=== PATIENT | female | born 1950 | race Caucasian/White ===

== ENCOUNTER 2017-10-06 12:29 | Inpatient (IN) | payer MEDICARE, OTHER ==
[2017-10-06] MEDS: SOD CHLORIDE 0.9% 1,000 ML IV (13:05)
[2017-10-06 13:36] LABS: WHITE BLOOD COUNT 5.6 10^3/ul (4.8-10.8)
[2017-10-06 13:36] LABS: ADD MAN DIFF? NO; BASOPHIL # 0.1 10^3/ul (0.0-0.1); BASOPHILS % 0.9 % (0.0-2.0); EOSINOPHILS # 0.1 10^3/ul (0.0-0.5); EOSINOPHILS % 1.8 % (0.0-7.0); HEMATOCRIT 37.2 % (37.0-47.0); HEMOGLOBIN 12.9 g/dl (12.0-16.0); LYMPHOCYTES # 1.7 10^3/ul (0.8-2.9); LYMPHOCYTES % 31.2 % (15.0-51.0); MEAN CORPUSCULAR HEMOGLOBIN 33.3 pg (29.0-33.0); MEAN CORPUSCULAR HGB CONC 34.7 g/dl (32.0-37.0); MEAN CORPUSCULAR VOLUME 96.1 fl (82.0-101.0); MEAN PLATELET VOLUME 9.5 fl (7.4-10.4); MONOCYTE # 0.3 10^3/ul (0.3-0.9); MONOCYTES % 5.9 % (0.0-11.0); NEUTROPHIL # 3.4 10^3/ul (1.6-7.5); PLATELET COUNT 204 10^3/UL (140-415); RED BLOOD COUNT 3.87 10^6/ul (4.20-5.40); RED CELL DISTRIBUTION WIDTH 12.6 % (11.5-14.5)
[2017-10-06 13:56] LABS: ALANINE AMINOTRANSFERASE 36 IU/L (13-69); ALBUMIN/GLOBULIN RATIO 1.48; ALKALINE PHOSPHATASE 107 IU/L (42-121); ANION GAP 13 (8-16); ASPARTATE AMINO TRANSFERASE 29 IU/L (15-46); BILIRUBIN,INDIRECT 0.3 mg/dl (0-1.1); BILIRUBIN,TOTAL 0.3 mg/dl (0.2-1.3); BLOOD UREA NITROGEN 12 mg/dl (7-20); CALCIUM 9.4 mg/dl (8.4-10.2); CARBON DIOXIDE 28 mmol/L (21-31); CHLORIDE 109 mmol/L (97-110); CREATININE 0.78 mg/dl (0.44-1.00); GLUCOSE 104 mg/dl (70-220); INR 0.99; POTASSIUM 3.8 mmol/L (3.5-5.1); PROTIME 13.2 Sec (11.9-14.9); SODIUM 146 mmol/L (135-144); TOTAL PROTEIN 6.7 g/dl (6.1-8.1)
[2017-10-06 13:57] LABS: PARTIAL THROMBOPLASTIN TIME 38.2 Sec (25.0-35.0)
[2017-10-06 14:04] LABS: OPIATES Negative (NEGATIVE)
[2017-10-06 14:05] LABS: AMPHETAMINE/METHAMPHETAMINE Negative (NEGATIVE); BARBITURATES Negative (NEGATIVE); BENZODIAZEPINES Negative (NEGATIVE); CANNABINOIDS Negative (NEGATIVE); COCAINE Negative (NEGATIVE)
[2017-10-06 14:12] LABS: TROPONIN-I < 0.012 ng/ml (0.00-0.12)
[2017-10-06] MEDS: MECLIZINE 12.5 MG TAB PO (14:20)
[2017-10-06] MEDS: HYDROCODONE/APAP (10/325) TAB PO (16:30)
[2017-10-06] MEDS ORDERED: ACETAMINOPHEN 325 MG TAB PO (17:00)
[2017-10-06] MEDS: ONDANSETRON 4 MG INJ IV (17:20)
[2017-10-06] MEDS: PANTOPRAZOLE (EC) 40 MG TAB PO (18:29)
[2017-10-06] MEDS: ZOLPIDEM 5 MG TAB PO (23:29)
[2017-10-06] MEDS: PROPAFENONE 150 MG TAB PO (23:29)
[2017-10-06] MEDS: ATORVASTATIN 40 MG TAB PO (23:29)
[2017-10-06] MEDS: traZODone 50 MG TAB PO (23:30)
[2017-10-07] MEDS: LEVOTHYROXINE 25 MCG TAB PO (06:10)
[2017-10-07] MEDS: PANTOPRAZOLE (EC) 40 MG TAB PO ×2 (06:10→17:54)
[2017-10-07 07:57] LABS: ADD MAN DIFF? NO
[2017-10-07 08:00] LABS: WHITE BLOOD COUNT 7.2 10^3/ul (4.8-10.8)
[2017-10-07 08:00] LABS: BASOPHIL # 0.1 10^3/ul (0.0-0.1); BASOPHILS % 0.7 % (0.0-2.0); EOSINOPHILS # 0.2 10^3/ul (0.0-0.5); EOSINOPHILS % 2.4 % (0.0-7.0); HEMATOCRIT 33.9 % (37.0-47.0); HEMOGLOBIN 11.5 g/dl (12.0-16.0); LYMPHOCYTES # 2.7 10^3/ul (0.8-2.9); LYMPHOCYTES % 37.2 % (15.0-51.0); MEAN CORPUSCULAR HEMOGLOBIN 33.2 pg (29.0-33.0); MEAN CORPUSCULAR HGB CONC 33.9 g/dl (32.0-37.0); MEAN PLATELET VOLUME 10.3 fl (7.4-10.4); MONOCYTE # 0.5 10^3/ul (0.3-0.9); MONOCYTES % 7.4 % (0.0-11.0); NEUTROPHIL # 3.7 10^3/ul (1.6-7.5); NEUTROPHILS % 52.2 % (39.0-77.0); PLATELET COUNT 187 10^3/UL (140-415); RED BLOOD COUNT 3.46 10^6/ul (4.20-5.40); RED CELL DISTRIBUTION WIDTH 12.7 % (11.5-14.5)
[2017-10-07 08:19] LABS: ANION GAP 13 (8-16); BLOOD UREA NITROGEN 15 mg/dl (7-20); CALCIUM 8.6 mg/dl (8.4-10.2); CARBON DIOXIDE 27 mmol/L (21-31); CHLORIDE 108 mmol/L (97-110); GLUCOSE 98 mg/dl (70-220); POTASSIUM 3.9 mmol/L (3.5-5.1); SODIUM 144 mmol/L (135-144)
[2017-10-07 08:32] LABS: TROPONIN-I < 0.012 ng/ml (0.00-0.12)
[2017-10-07] MEDS: ASPIRIN 325 MG TAB PO (09:35)
[2017-10-07] MEDS: PROPAFENONE 150 MG TAB PO ×2 (09:35→21:45)
[2017-10-07] MEDS: HYDROCODONE/APAP (10/325) TAB PO (11:23)
[2017-10-07] MEDS ORDERED: ONDANSETRON 4 MG INJ IV (16:00)
[2017-10-07] MEDS: ONDANSETRON 4 MG INJ IV (16:08)
[2017-10-07] MEDS: NICOTINE (14 MG/24 HR) PATCH TRANSDERM (18:30)
[2017-10-07] MEDS: ATORVASTATIN 40 MG TAB PO (21:43)
[2017-10-07] MEDS: MECLIZINE 12.5 MG TAB PO (21:43)
[2017-10-07] MEDS: ZOLPIDEM 5 MG TAB PO (21:43)
[2017-10-07] MEDS: traZODone 50 MG TAB PO (21:44)
[2017-10-08] MEDS: LEVOTHYROXINE 25 MCG TAB PO (05:42)
[2017-10-08] MEDS: ONDANSETRON 4 MG INJ IV ×3 (05:42→18:45)
[2017-10-08] MEDS: PANTOPRAZOLE (EC) 40 MG TAB PO ×2 (05:42→18:45)
[2017-10-08 08:12] LABS: ADD MAN DIFF? NO
[2017-10-08 08:15] LABS: BASOPHIL # 0.1 10^3/ul (0.0-0.1); BASOPHILS % 0.8 % (0.0-2.0); EOSINOPHILS # 0.1 10^3/ul (0.0-0.5); EOSINOPHILS % 1.6 % (0.0-7.0); HEMATOCRIT 35.2 % (37.0-47.0); HEMOGLOBIN 12.2 g/dl (12.0-16.0); LYMPHOCYTES # 2.4 10^3/ul (0.8-2.9); LYMPHOCYTES % 32.3 % (15.0-51.0); MEAN CORPUSCULAR HEMOGLOBIN 33.5 pg (29.0-33.0); MEAN CORPUSCULAR HGB CONC 34.7 g/dl (32.0-37.0); MEAN CORPUSCULAR VOLUME 96.7 fl (82.0-101.0); MONOCYTE # 0.5 10^3/ul (0.3-0.9); NEUTROPHIL # 4.3 10^3/ul (1.6-7.5); NEUTROPHILS % 58.2 % (39.0-77.0); PLATELET COUNT 196 10^3/UL (140-415); RED BLOOD COUNT 3.64 10^6/ul (4.20-5.40); RED CELL DISTRIBUTION WIDTH 12.5 % (11.5-14.5)
[2017-10-08 08:15] LABS: WHITE BLOOD COUNT 7.4 10^3/ul (4.8-10.8)
[2017-10-08 08:50] LABS: ANION GAP 14 (8-16); BLOOD UREA NITROGEN 12 mg/dl (7-20); CALCIUM 9.2 mg/dl (8.4-10.2); CARBON DIOXIDE 28 mmol/L (21-31); CHLORIDE 105 mmol/L (97-110); CREATININE 0.73 mg/dl (0.44-1.00); GLUCOSE 97 mg/dl (70-220); POTASSIUM 4.2 mmol/L (3.5-5.1); SODIUM 143 mmol/L (135-144)
[2017-10-08] MEDS: PROPAFENONE 150 MG TAB PO ×2 (09:35→21:07)
[2017-10-08] MEDS: APIXABAN 5 MG TABLET PO ×2 (09:36→21:07)
[2017-10-08] MEDS: MECLIZINE 12.5 MG TAB PO ×3 (09:36→21:10)
[2017-10-08] MEDS: NICOTINE (14 MG/24 HR) PATCH TRANSDERM (09:36)
[2017-10-08] MEDS: SOD CHLORIDE 0.9% 1,000 ML IV ×2 (11:14→21:57)
[2017-10-08] MEDS: HYDROCODONE/APAP (10/325) TAB PO ×2 (11:18→18:45)
[2017-10-08] MEDS: traZODone 50 MG TAB PO (21:07)
[2017-10-08] MEDS: ATORVASTATIN 40 MG TAB PO (21:07)
[2017-10-08] MEDS: ZOLPIDEM 5 MG TAB PO (21:57)
[2017-10-09] MEDS: LEVOTHYROXINE 25 MCG TAB PO (05:48)
[2017-10-09] MEDS: PANTOPRAZOLE (EC) 40 MG TAB PO ×2 (05:48→17:24)
[2017-10-09] MEDS: PROPAFENONE 150 MG TAB PO ×2 (09:30→21:05)
[2017-10-09] MEDS: SOD CHLORIDE 0.9% 1,000 ML IV ×2 (09:30→17:32)
[2017-10-09] MEDS: MAGNESIUM HYDROXIDE 30ML CUP PO (09:30)
[2017-10-09] MEDS: MECLIZINE 12.5 MG TAB PO ×3 (09:30→21:05)
[2017-10-09] MEDS: APIXABAN 5 MG TABLET PO ×2 (09:31→21:05)
[2017-10-09] MEDS: NICOTINE (14 MG/24 HR) PATCH TRANSDERM (09:31)
[2017-10-09] MEDS: ONDANSETRON 4 MG INJ IV ×2 (09:31→17:28)
[2017-10-09] MEDS: HYDROCODONE/APAP (10/325) TAB PO ×2 (10:48→22:25)
[2017-10-09 18:25] LABS: CHOLESTEROL 113 mg/dl (100-200)
[2017-10-09 18:25] LABS: HDL CHOLESTEROL 54 mg/dl (35-98); LDL CHOLESTEROL,CALCULATED 33 mg/dl; TRIGLYCERIDES 129 mg/dl (0-149)
[2017-10-09] MEDS: ATORVASTATIN 40 MG TAB PO (21:04)
[2017-10-09] MEDS: traZODone 50 MG TAB PO (21:04)
[2017-10-09] MEDS: ZOLPIDEM 5 MG TAB PO (22:25)
[2017-10-10] MEDS: PANTOPRAZOLE (EC) 40 MG TAB PO ×2 (05:13→17:16)
[2017-10-10] MEDS: MAGNESIUM HYDROXIDE 30ML CUP PO (05:13)
[2017-10-10] MEDS: LEVOTHYROXINE 25 MCG TAB PO (05:13)
[2017-10-10] MEDS: SOD CHLORIDE 0.9% 1,000 ML IV (05:15)
[2017-10-10] MEDS: APIXABAN 5 MG TABLET PO ×2 (08:38→20:48)
[2017-10-10] MEDS: PROPAFENONE 150 MG TAB PO ×2 (08:39→20:48)
[2017-10-10] MEDS: NICOTINE (14 MG/24 HR) PATCH TRANSDERM (08:39)
[2017-10-10] MEDS: MECLIZINE 12.5 MG TAB PO ×4 (08:40→20:47)
[2017-10-10 08:56] LABS: ADD MAN DIFF? NO
[2017-10-10 09:04] LABS: BASOPHIL # 0.1 10^3/ul (0.0-0.1); EOSINOPHILS # 0.2 10^3/ul (0.0-0.5); EOSINOPHILS % 3.3 % (0.0-7.0); HEMATOCRIT 32.6 % (37.0-47.0); LYMPHOCYTES # 2.3 10^3/ul (0.8-2.9); LYMPHOCYTES % 44.8 % (15.0-51.0); MEAN CORPUSCULAR HEMOGLOBIN 33.1 pg (29.0-33.0); MEAN CORPUSCULAR HGB CONC 33.7 g/dl (32.0-37.0); MEAN CORPUSCULAR VOLUME 98.2 fl (82.0-101.0); MEAN PLATELET VOLUME 10.4 fl (7.4-10.4); MONOCYTE # 0.4 10^3/ul (0.3-0.9); MONOCYTES % 8.3 % (0.0-11.0); NEUTROPHIL # 2.2 10^3/ul (1.6-7.5); NEUTROPHILS % 42.4 % (39.0-77.0); PLATELET COUNT 182 10^3/UL (140-415); RED BLOOD COUNT 3.32 10^6/ul (4.20-5.40); RED CELL DISTRIBUTION WIDTH 12.9 % (11.5-14.5)
[2017-10-10 09:04] LABS: WHITE BLOOD COUNT 5.2 10^3/ul (4.8-10.8)
[2017-10-10 09:19] LABS: ANION GAP 10 (8-16); BLOOD UREA NITROGEN 7 mg/dl (7-20); CALCIUM 8.7 mg/dl (8.4-10.2); CARBON DIOXIDE 32 mmol/L (21-31); CHLORIDE 107 mmol/L (97-110); CREATININE 0.85 mg/dl (0.44-1.00); GLUCOSE 76 mg/dl (70-220); MAGNESIUM 2.2 mg/dl (1.7-2.5); POTASSIUM 4.3 mmol/L (3.5-5.1); SODIUM 145 mmol/L (135-144)
[2017-10-10] MEDS: ONDANSETRON 4 MG INJ IV (10:25)
[2017-10-10] MEDS: HYDROCODONE/APAP (10/325) TAB PO (17:16)
[2017-10-10] MEDS: traZODone 50 MG TAB PO (20:48)
[2017-10-10] MEDS: ATORVASTATIN 40 MG TAB PO (20:48)
[2017-10-10] MEDS: ZOLPIDEM 5 MG TAB PO (23:04)
[2017-10-11] MEDS: SOD CHLORIDE 0.9% 500 ML IV (01:28)
[2017-10-11] MEDS: PANTOPRAZOLE (EC) 40 MG TAB PO ×2 (06:04→18:39)
[2017-10-11] MEDS: LEVOTHYROXINE 25 MCG TAB PO (06:05)
[2017-10-11] MEDS: PROPAFENONE 150 MG TAB PO ×2 (08:56→20:22)
[2017-10-11] MEDS: MECLIZINE 12.5 MG TAB PO ×4 (08:57→20:22)
[2017-10-11] MEDS: APIXABAN 5 MG TABLET PO ×2 (08:57→20:21)
[2017-10-11] MEDS: NICOTINE (14 MG/24 HR) PATCH TRANSDERM (08:58)
[2017-10-11] MEDS: HYDROCODONE/APAP (10/325) TAB PO ×2 (09:36→16:32)
[2017-10-11] MEDS: MAGNESIUM HYDROXIDE 30ML CUP PO (14:06)
[2017-10-11] MEDS: SOD CHLORIDE 0.9% 1,000 ML IV (14:30)
[2017-10-11] MEDS: ATORVASTATIN 40 MG TAB PO (20:21)
[2017-10-11] MEDS: traZODone 50 MG TAB PO (20:22)
[2017-10-11] MEDS ORDERED: VITAMIN A & D 5 GM OINT PACKET TOP (20:47)
[2017-10-11] MEDS: ZOLPIDEM 5 MG TAB PO (23:02)
[2017-10-12] MEDS: SOD CHLORIDE 0.9% 1,000 ML IV ×3 (00:38→20:30)
[2017-10-12] MEDS: PANTOPRAZOLE (EC) 40 MG TAB PO ×2 (05:55→17:05)
[2017-10-12] MEDS: LEVOTHYROXINE 25 MCG TAB PO (05:55)
[2017-10-12] MEDS: PROPAFENONE 150 MG TAB PO ×2 (08:17→20:31)
[2017-10-12] MEDS: APIXABAN 5 MG TABLET PO ×2 (08:17→20:32)
[2017-10-12] MEDS: MECLIZINE 12.5 MG TAB PO ×4 (08:18→20:32)
[2017-10-12] MEDS: NICOTINE (14 MG/24 HR) PATCH TRANSDERM (08:18)
[2017-10-12] MEDS: HYDROCODONE/APAP (10/325) TAB PO ×2 (09:38→15:55)
[2017-10-12] MEDS: ONDANSETRON 4 MG INJ IV (11:02)
[2017-10-12] MEDS: ATORVASTATIN 40 MG TAB PO (20:30)
[2017-10-12] MEDS: traZODone 50 MG TAB PO (20:32)
[2017-10-12] MEDS: ZOLPIDEM 5 MG TAB PO (20:32)
[2017-10-13] MEDS: SOD CHLORIDE 0.9% 1,000 ML IV ×2 (06:30→17:27)
[2017-10-13] MEDS: LEVOTHYROXINE 25 MCG TAB PO (06:53)
[2017-10-13] MEDS: PANTOPRAZOLE (EC) 40 MG TAB PO ×2 (06:53→17:26)
[2017-10-13] MEDS: NICOTINE (14 MG/24 HR) PATCH TRANSDERM (08:49)
[2017-10-13] MEDS: PROPAFENONE 150 MG TAB PO ×2 (08:49→20:59)
[2017-10-13] MEDS: MECLIZINE 12.5 MG TAB PO ×4 (08:49→20:58)
[2017-10-13] MEDS: APIXABAN 5 MG TABLET PO ×2 (08:50→21:00)
[2017-10-13 08:56] LABS: ADD MAN DIFF? NO
[2017-10-13 08:59] LABS: WHITE BLOOD COUNT 8.2 10^3/ul (4.8-10.8)
[2017-10-13 08:59] LABS: BASOPHIL # 0.1 10^3/ul (0.0-0.1); BASOPHILS % 0.7 % (0.0-2.0); EOSINOPHILS # 0.2 10^3/ul (0.0-0.5); EOSINOPHILS % 2.3 % (0.0-7.0); HEMOGLOBIN 11.5 g/dl (12.0-16.0); LYMPHOCYTES # 1.9 10^3/ul (0.8-2.9); LYMPHOCYTES % 22.7 % (15.0-51.0); MEAN CORPUSCULAR HGB CONC 33.8 g/dl (32.0-37.0); MEAN CORPUSCULAR VOLUME 97.7 fl (82.0-101.0); MEAN PLATELET VOLUME 9.8 fl (7.4-10.4); MONOCYTE # 0.6 10^3/ul (0.3-0.9); MONOCYTES % 7.7 % (0.0-11.0); NEUTROPHIL # 5.4 10^3/ul (1.6-7.5); NEUTROPHILS % 66.4 % (39.0-77.0); PLATELET COUNT 193 10^3/UL (140-415); RED BLOOD COUNT 3.48 10^6/ul (4.20-5.40); RED CELL DISTRIBUTION WIDTH 12.7 % (11.5-14.5)
[2017-10-13 09:22] LABS: ANION GAP 11 (8-16); BLOOD UREA NITROGEN 7 mg/dl (7-20); CALCIUM 8.9 mg/dl (8.4-10.2); CARBON DIOXIDE 32 mmol/L (21-31); CHLORIDE 105 mmol/L (97-110); CREATININE 0.89 mg/dl (0.44-1.00); GLUCOSE 86 mg/dl (70-220); POTASSIUM 4.6 mmol/L (3.5-5.1); SODIUM 143 mmol/L (135-144)
[2017-10-13] MEDS: ONDANSETRON 4 MG INJ IV ×2 (10:22→17:38)
[2017-10-13] MEDS: HYDROCODONE/APAP (10/325) TAB PO (12:47)
[2017-10-13] MEDS: ZOLPIDEM 5 MG TAB PO (20:58)
[2017-10-13] MEDS: ATORVASTATIN 40 MG TAB PO (20:59)
[2017-10-13] MEDS: traZODone 50 MG TAB PO (20:59)
[2017-10-14] MEDS: PANTOPRAZOLE (EC) 40 MG TAB PO ×2 (06:15→17:32)
[2017-10-14] MEDS: LEVOTHYROXINE 25 MCG TAB PO (06:16)
[2017-10-14] MEDS: NICOTINE (14 MG/24 HR) PATCH TRANSDERM (09:23)
[2017-10-14] MEDS: PROPAFENONE 150 MG TAB PO ×2 (09:23→20:32)
[2017-10-14] MEDS: APIXABAN 5 MG TABLET PO ×2 (09:23→20:32)
[2017-10-14] MEDS: MECLIZINE 12.5 MG TAB PO ×4 (09:23→20:32)
[2017-10-14] MEDS: ONDANSETRON 4 MG INJ IV (09:23)
[2017-10-14] MEDS: HYDROCODONE/APAP (10/325) TAB PO (14:23)
[2017-10-14] MEDS: ZOLPIDEM 5 MG TAB PO (20:32)
[2017-10-14] MEDS: traZODone 50 MG TAB PO (20:32)
[2017-10-14] MEDS: ATORVASTATIN 40 MG TAB PO (20:32)
[2017-10-15] MEDS: HYDROCODONE/APAP (10/325) TAB PO ×3 (04:18→18:49)
[2017-10-15] MEDS: PANTOPRAZOLE (EC) 40 MG TAB PO ×2 (06:00→17:23)
[2017-10-15] MEDS: LEVOTHYROXINE 25 MCG TAB PO (06:36)
[2017-10-15] MEDS: APIXABAN 5 MG TABLET PO (08:39)
[2017-10-15] MEDS: MECLIZINE 12.5 MG TAB PO ×3 (08:39→16:44)
[2017-10-15] MEDS: PROPAFENONE 150 MG TAB PO (08:41)
[2017-10-15] MEDS: NICOTINE (14 MG/24 HR) PATCH TRANSDERM (08:42)
[2017-10-15] MEDS: ONDANSETRON 4 MG INJ IV ×2 (08:53→16:44)
[2017-10-15] MEDS: SOD CHLORIDE 0.9% 1,000 ML IV ×2 (12:30)
== END 2017-10-15 20:14 | DRG 149 ==
LOC: E/R 12:29 → MS4 16:49
DX: H81.10 Benign paroxysmal vertigo, unspecified ear (principal); G45.9 Transient cerebral ischemic attack, unspecified; I48.0 Paroxysmal atrial fibrillation; F32.9 Major depressive disorder, single episode, unspecified; I10 Essential (primary) hypertension; E86.0 Dehydration; R25.3 Fasciculation; E03.9 Hypothyroidism, unspecified; M54.5 Low back pain; G47.9 Sleep disorder, unspecified; K59.00 Constipation, unspecified
CPT/HCPCS: 36415; 70450; 70544; 70549; 70551; 71045; 80048; 80053; 80061; 80307; 83735; 84484; 85025; 85610; 85730; 92526; 92610; 93005; 93306; 93880; 95819; 96374; 97163; 97530; 99285-25; G0378